=== PATIENT | female | born 1975 | race Caucasian/White ===

== ENCOUNTER 2018-11-23 20:14 | Emergency (ER) | payer OTHER | END 2018-11-23 22:22 | disposition home or self-care (01) | LOC: JERFT 20:14 ==

== ENCOUNTER 2021-10-08 04:30 | Day surgery (SDC) | payer OTHER ==
[2021-10-05 17:27] VITALS: BMI 30.2
[2021-10-08] MEDS ORDERED: BUPIVACAINE HCL/PF 0.5% (5MG/ML) 10 ML VIAL ONE (07:16)
[2021-10-08] MEDS ORDERED: PROPOFOL 20 ML ONE ×4 (07:44→09:32)
[2021-10-08] MEDS ORDERED: MIDAZOLAM HCL 2 MG/2 ML SINGLE DOSE VIAL ONE (07:45)
[2021-10-08] MEDS ORDERED: SUCCINYLCHOLINE CHLORIDE 200 MG/10 ML SYRINGE ONE (07:45)
[2021-10-08] MEDS ORDERED: ROCURONIUM BROMIDE 50 MG/5 ML SYRINGE ONE (07:45)
[2021-10-08] MEDS ORDERED: BUPIVACAINE HCL/PF 0.5% (5MG/ML) 10 ML VIAL IJ ONE ×2 (08:15)
[2021-10-08] MEDS ORDERED: ceFAZolin SODIUM 1 GM VIAL IVPB ONE (08:30)
[2021-10-08] MEDS ORDERED: oxyCODONE HCL 5 MG TABLET PO PRN (08:46)
[2021-10-08] MEDS ORDERED: ONDANSETRON 4 MG/2 ML VIAL IVPUSH PRN (08:46)
[2021-10-08] MEDS ORDERED: LACTATED RINGERS SOLUTION 1,000 ML IV SCH (09:00)
[2021-10-08] MEDS ORDERED: NEOSTIGMINE METHYLSULFATE 0.5 MG/ML - 10 ML MDV ONE (09:34)
[2021-10-08 13:30] VITALS: BP 123/65; PULSE 82; TEMP 97.6
== END 2021-10-08 13:20 | disposition home or self-care (01) ==
LOC: JASU-SURG 04:30
PROVIDERS: ATTEND Surgery
PROC: 0FT44ZZ Resection of Gallbladder, Percutaneous Endoscopic Approach (ICD-10-PCS; principal; 2021-10-08 08:00)
DX: K81.1 Chronic cholecystitis (principal)
CPT/HCPCS: 81025; 82962; 88304-TC; 94760